=== PATIENT | female | born 1970 | race Two or more races ===

== ENCOUNTER 2017-04-03 08:57 | Emergency (ER) | payer OTHER, BC ==
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
[2017-04-03] MEDS ORDERED: ONDANSETRON 4 MG TAB.RAPDIS PO ONE (09:34)
[2017-04-03] MEDS ORDERED: OXYCODONE-ACETAMINOPHEN 5-325 MG TABLET PO ONE (09:34)
[2017-04-03] MEDS ORDERED: DIPH/PERTUSS(ACELL)/TETANUS VAC/PF 0.5 ML SYR (>=10YO) IM ONE (09:35)
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
[2017-04-03 12:58] VITALS: BP 128/67
== END 2017-04-03 11:39 | disposition home or self-care (01) ==
LOC: ER 08:57
DX: S20.212A Contusion of left front wall of thorax, initial encounter (principal); S16.1XXA Strain of muscle, fascia and tendon at neck level, initial encounter; S80.01XA Contusion of right knee, initial encounter; S90.01XA Contusion of right ankle, initial encounter; R07.9 Chest pain, unspecified; M25.561 Pain in right knee; M25.571 Pain in right ankle and joints of right foot; V87.7XXA Person injured in collision between other specified motor vehicles (traffic), initial encounter
CPT/HCPCS: 99284; 90471; 73610; 73564; 71250; 72125; 90715; S0119